=== PATIENT | female | born 1985 | race African-American/Black ===

== ENCOUNTER → 2016-03-21 | Day surgery (SDC) | payer BC ==
[2016-03-12 11:34] VITALS: Ht 160 cm; Wt 70.0 kg
[~2016-03-21] VITALS: Ht 160 cm; Wt 70.0 kg
[~2016-03-21] MED LIST: AMIT50TA3 PO; FERR18TA PO; LEVO-371 PO; MONT1TAB3 PO; MULT-506 PO; OMEP40CA PO
[2016-03-21 14:39] VITALS: TEMP 37
--- NOTE | 2016-03-21 15:13 | Endo History and Physical ---
History & Physical Date of Service: Mar 21, 2016. Chief Complaint: reflux Referring Physician: TAINA Krishna III History of Present Illness 31 yo female who presents for EGD secondary to GERD. Past Surgical History Hx Cardiac Surgery: No Hx Internal Defibrillator: No Hx Pacemaker: No Hx Abdominal Surgery: No Hx of Implantable Prosthesis: No Hx Post-Op Nausea and Vomiting: No Hx Cancer Surgery: No Hx Thoracic Surgery: No Hx Orthopedic: No Hx Urinary Tract Surgery: No Family History None Social History Smoking Status: Never Smoker Hx Substance Use: No Hx Alcohol Use: No Allergies Coded Allergies: No Known Allergies (Verified , 03/21/16) Current Medications Reported Home Medications Medications Dose Route/Sig Max Daily Dose Days Date Category Singulair (Montelukast Sodium) 10 Mg Tab 10 Mg PO DAILY PRN 03/12/16 Reported Xyzal (Levocetirizine Dihydrochloride) 5 Mg Tab 1 Tab PO DAILY PRN 03/12/16 Reported Amitriptyline Hcl 50 Mg Tab 50 Mg PO HS 03/12/16 Reported Prilosec (Omeprazole) 40 Mg Capcr 40 Mg PO QAM 03/12/16 Reported Iron (Ferrous Sulfate) 90 Mg Tab 1 Tab PO QAM 03/12/16 Reported Multivitamin (Multivitamins) Tab 1 Tab PO QAM 03/12/16 Reported Vital Signs Weight (Kilograms): 70 Height (Feet): 5 Height (Inches): 3 Date Time Temp Pulse Resp B/P Pulse Ox O2 Delivery O2 Flow Rate FiO2 03/21/16 14:39 37 74 18 135/86 100 Room Air Physical Exam General Appearance: WD/WN, no apparent distress Respiratory/Chest: Auscultation: breath sounds normal Cardiovascular: Heart Auscultation: RRR Abdomen: Bowel Sounds: normal Inspection & Palpation: soft, non-distended, no tenderness, guarding & rebound Assessment and Plan Assessment: 31 yo female who presents for EGD secondary to GERD. Plan: Proceed with EGD.
--- NOTE | 2016-03-21 15:25 | Discharge Instructions ---
Endoscopy Patient Instructions Date / Procedure(s) Performed Mar 21, 2016. EGD Allergy Information Coded Allergies: No Known Allergies (Verified , 03/21/16) Discharge Date / Findings Mar 21, 2016. Reflux esophagitis Gastric antrum biopsies Medication Instructions Stop Prilosec Start Protonix 40mg by mouth each morning 1/2 hour prior to breakfast. OK to resume all other medications today as prescribed. Reported Home Medications Medications Dose Route/Sig Max Daily Dose Days Date Category Singulair (Montelukast Sodium) 10 Mg Tab 10 Mg PO DAILY PRN 03/12/16 Reported Xyzal (Levocetirizine Dihydrochloride) 5 Mg Tab 1 Tab PO DAILY PRN 03/12/16 Reported Amitriptyline Hcl 50 Mg Tab 50 Mg PO HS 03/12/16 Reported Prilosec (Omeprazole) 40 Mg Capcr 40 Mg PO QAM 03/12/16 Reported Iron (Ferrous Sulfate) 90 Mg Tab 1 Tab PO QAM 03/12/16 Reported Multivitamin (Multivitamins) Tab 1 Tab PO QAM 03/12/16 Reported Provider Instructions Activity Restrictions - No exercising or heavy lifting for 24 hours. - Do not drink alcohol the day of the procedure. - Do not drive a car or operate machinery until the day after the procedure. - Do not make any important decisions or sign important papers in 24 hours after the procedure. Following Day: - Return to full activity which may include returning to work/school. Diet Start your diet with liquids and light foods (jello, soup, juice, toast). Then eat your usual diet if not nauseated. Treatment For Common After Affects For mild abdominal pain, bloating, or excessive gas: - Rest - Eat lightly - Lie on right side Follow-Up Information Follow-up with TAINA Krishna III as scheduled Anesthesia Information What You Should Know You have had a procedure that required some medicine to reduce anxiety and discomfort. This treatment is called moderate sedation. After receiving the treatment, you may be sleepy, but you will be able to breathe on your own. The effects of the treatment may last for several hours. Follow these instructions along with Activity/Diet recommendations noted above: * Do NOT do anything where dizziness or clumsiness would be dangerous. * Rest quietly at home today, then you can be up and about tomorrow. * Have a responsible person stay with you the rest of today. * You may have had an I.V. today. If so, you may take the dressing off later today. Recommendations Call your doctor if: * Trouble breathing * Continuous vomiting for more than 24 hours * Temperature above 101 degrees * Severe abdominal pain or bloating * Pain not relieved by pain medicine ordered * There is increased drainage or redness from any incision * A large amount of rectal bleeding greater than 2-3 tablespoons. (If you had a polyp/s removed or have hemorrhoids, a small amount of blood - from the rectum is to be expected.) * You have any unanswered questions or concerns. IN THE EVENT OF A SERIOUS EMERGENCY, GO TO THE NEAREST EMERGENCY ROOM Your discharge instructions were prepared by provider El De La Cruz. Patient Instructions Signature Page Debo Corcoran Patient (or Guardian) Signature/Date: I have read and understand the instructions given to me by my caregivers. Caregiver/RN/Doctor Signature/Date: The above-named patient and/or guardian has received patient instructions on this date. + Original Patient Signature Page (only) stays with chart. Please make copy for patient.
--- NOTE | 2016-03-21 15:30 | GI REPORT ---
Procedure Date: 03/21/2016 3:02 PM Procedure: Upper GI endoscopy Indications: Gastro-esophageal reflux disease Medicines: Monitored Anesthesia Care Complications: No immediate complications. Estimated Blood Loss: Estimated blood loss: none. Procedure: Pre-Anesthesia Assessment: - Prior to the procedure, a History and Physical was performed, and patient medications and allergies were reviewed. The patient's tolerance of previous anesthesia was also reviewed. The risks and benefits of the procedure and the sedation options and risks were discussed with the patient. All questions were answered, and informed consent was obtained. Prior Anticoagulants: The patient has taken no previous anticoagulant or antiplatelet agents. ASA Grade Assessment: II - A patient with mild systemic disease. After reviewing the risks and benefits, the patient was deemed in satisfactory condition to undergo the procedure. After obtaining informed consent, the endoscope was passed under direct vision. Throughout the procedure, the patient's blood pressure, pulse, and oxygen saturations were monitored continuously. The scope was introduced through the mouth, and advanced to the second part of duodenum. The upper GI endoscopy was accomplished without difficulty. The patient tolerated the procedure well. Findings: LA Grade A (one or more mucosal breaks less than 5 mm, not extending between tops of 2 mucosal folds) esophagitis with no bleeding was found. The entire examined stomach was normal. Biopsies were taken with a cold forceps for Helicobacter pylori testing. The examined duodenum was normal. Impression: - LA Grade A reflux esophagitis. - Normal stomach. Biopsied. - Normal examined duodenum. Recommendation: - Resume previous diet. - Continue present medications. - Await pathology results. - Return to GI office as previously scheduled. El De La Cruz, DO 03/21/2016 3:29:03 PM This report has been signed electronically. Note Initiated On: 03/21/2016 3:02 PM
--- NOTE | 2016-03-21 15:51 | Anesthesiology Progress Note ---
Anesthesia Post Op Note Date & Time Mar 21, 2016 at 15:51 Vital Signs Pain Intensity: 0 Vital Signs Past 12 Hours Date Time Temp Pulse Resp B/P Pulse Ox O2 Delivery O2 Flow Rate FiO2 03/21/16 15:40 70 18 135/80 100 Room Air 03/21/16 15:24 67 18 136/85 100 Room Air 03/21/16 14:39 37 74 18 135/86 100 Room Air Notes Mental Status: alert / awake / arousable, participated in evaluation Pt Amnestic to Procedure: Yes Nausea / Vomiting: adequately controlled Pain: adequately controlled Airway Patency, RR, SpO2: stable & adequate BP & HR: stable & adequate Hydration State: stable & adequate Anesthetic Complications: no major complications apparent
[2016-03-21 15:53] VITALS: BP 135/93; PULSE 64; O2SAT 100
== END | disposition home or self-care (01) ==
LOC: C.GI 14:17
PROVIDERS: ATTEND Internal Medicine
DX: K29.70 Gastritis, unspecified, without bleeding (principal); K21.9 Gastro-esophageal reflux disease without esophagitis

== ENCOUNTER → 2017-09-24 | Outpatient (CLI) | payer OTHER ==
[~2017-09-24] MED LIST changes: -LEVO-371 PO; +LEVO5TAB2 PO
== END | disposition home or self-care (01) ==
LOC: C.PAPS 18:11
PROVIDERS: ATTEND Obstetrics & Gynecology
DX: Z12.4 Encounter for screening for malignant neoplasm of cervix (principal)